=== PATIENT | male | born 1955 | race Two or more races ===

== ENCOUNTER 2017-03-27 09:04 | Day surgery (SDC) | payer OTHER ==
--- NOTE | 2017-03-20 06:40 | Anethesia Preoperative Eval ---
Anesthesia Pre-op PMH/ROS General Date of Evaluation: Mar 20, 2017 Time of Evaluation: 06:39 Anesthesiologist: sirena ASA Score: ASA 3 Mallampati Score Class I : Soft palate, uvula, fauces, pillars visible Class II: Soft palate, uvula, fauces visible Class III: Soft palate, base of uvula visible Class IV: Only hard plate visible Mallampati Classification: Class II Surgeon: benigno Diagnosis: gerd Surgical Procedure: egd Anesthesia History: none Social History: smoking - nonsmoker Family History: no anesthesia problems Allergies: Coded Allergies: CIPROFLOXACIN (Verified Allergy, Severe, 03/27/17) FACIAL SWELLING AND SKIN RASH Medications: see eMAR Past Medical History Gastrointestinal/Genitourinary: Reports: GERD Neurologic/Psychiatric: Reports: depression/anxiety, other - seizure disorder, Anesthesia Pre-op Phys. Exam Physician Exam Constitutional: NAD Neurologic: CN 2-12 intact Cardiovascular: RRR Respiratory: CTA Gastrointestinal: S/NT/ND Airway Exam Mallampati Score: Class II MO: full Neck: supple TMD: 2fb ROM: limited Anesthesia Pre-op A/P Risk Assessment & Plan Assessment: asa3 Plan: mac Status Change Before Surgery: No Pre-Antibiotics Drug: NUBIA Mathews Mar 20, 2017 06:40
[~2017-03-27] VITALS: Ht 167.6 cm; Wt 64.9 kg
[2017-03-27] VITALS (8 sets, daily range): BP systolic 115–141; BP diastolic 77–91
[~2017-03-27 09:04] MED LIST: LR 1000ml 1,000 ML IVLG SCH
[2017-03-27] MEDS ORDERED: LR 1000ml 1,000 ML IVLG SCH (09:47)
[2017-03-27] MEDS ORDERED: LATANOPROST2.5 ML BOTH EYES (09:57)
[2017-03-27] MEDS ORDERED: TIMOPTIC 0.5%1 DRO1 BOTH EYES (09:57)
[2017-03-27] MEDS ORDERED: DILANTIN100 MG ORAL (09:57)
[2017-03-27] MEDS ORDERED: Midazolam 2mg/2ml Inj IVP PRN (10:00)
[2017-03-27] MEDS ORDERED: DiphenhydrAMINE 50mg/ml Inj IVP PRN (10:00)
[2017-03-27] MEDS ORDERED: LR 1000ml ONE (10:00)
[2017-03-27] MEDS ORDERED: Lidocaine 1% MPF 10mg/ml 5ml ONE (10:00)
[2017-03-27] MEDS ORDERED: Atropine Inj 1mg/10ml Syr IV PRN (10:00)
[2017-03-27] MEDS ORDERED: fentaNYL 100 mcg/2 mL IV PRN (10:00)
[2017-03-27] MEDS ORDERED: Propofol 200mg/20ml IV ONE (10:00)
--- NOTE | 2017-03-27 10:00 | Short Stay Surgery H&P ---
History of Present Illness History of Present Illness Chief Complaint Abdominal pains, GERD HPI Jamie Mcgowan is a 62 year old male who was admitted on for GERD/abdominal pains Patient History Allergies: Coded Allergies: CIPROFLOXACIN (Verified Allergy, Severe, 03/27/17) FACIAL SWELLING AND SKIN RASH PAST MEDICAL HISTORY: Past Surgeries: (1) H/O foot surgery Social History: Medication History Scheduled Latanoprost* (Xalatan*), 1 DROP BOTH EYES BEDTIME, (Reported) Phenytoin Sodium Extended* (Dilantin*), 100 MG ORAL THREE TIMES A DAY, (Reported ) Timolol Maleate (Timolol Maleate), 1 DROP BOTH EYES TWICE A DAY, (Reported) Review of Systems Cardiovascular: Reports: no symptoms Respiratory: Reports: no symptoms Skeletal: Reports: no symptoms Gastrointestinal: Reports: gastro esophageal reflux disease Genitourinary: Reports: no symptoms Neurologic: Reports: no symptoms Endocrine: Reports: no symptoms Hematologic: Reports: no symptoms Physical Exam Skin: normal HENT: normal Heart: normal Lungs: normal Abdomen: abnormal Extremities: normal Genitourinary: normal Plan Plan of Care Upper Gi endoscopy and biopsy Preop Interventions None. Summary of Findings See the reports Final Diagnosis: Attestation Are the patient's medical conditions optimized for surgery? Attestation Response: yes EULALIA SOTO Mar 27, 2017 10:00
--- NOTE | 2017-03-27 10:01 | Pre-Procedure Note/Attestation ---
Pre-Procedure Note/Attestation Complete Prior to Procedure Planned Procedure: left Procedure Narrative: Examination of the stomach via endoscopy Indications for Procedure Pre-Operative Diagnosis: R/O peptic ulcer/gastritis/esophagitis Attestation I attest that I discussed the nature of the procedure; its benefits; risks and complications; and alternatives (and the risks and benefits of such alternatives ), prior to the procedure, with the patient (or the patient's legal patient representative). I attest that, if there was a reasonable possibility of needing a blood transfusion, the patient (or the patient's legal patient representative) was given the [facility] standardized written summary, pursuant to the [place] Blood Safety Act ([place] Health and Safety Code # 1645, as amended). I attest that I re-evaluated the patient just prior to the surgery and that there has been no change in the patient's H&P, except as documented below: EULALIA SOTO Mar 27, 2017 10:01
--- NOTE | 2017-03-27 10:22 | Endoscopy Procedure Note ---
Endoscopy Procedure Note Indication for Procedure: Abdominal pains, GERD Procedures Performed: EGD - mild erosion at GE junction constent with GERD biopsied. Gastritis/inflammatory process with edema of prepyloric are and pyloric channel biopsied. Gastric biopsy done from gastric body. Specimen: yes Pt Tolerated Procedure Well: Yes Estimated Blood Loss: none Anesthesiologist: Dr. Sandhu Anesthesia: moderate sedation Medication Given: see anesthesia record Implant(s) used?: No 50 yrs or older w/o bx or poly: Not Applicable 10yrs. F/U not recommended: Not Applicable If not recommended, why?: Med reason:<3 yrs.: System Reason:<3 yrs.: EULALIA SOTO Mar 27, 2017 10:21
--- NOTE | 2017-03-27 10:22 | Discharge Instructions ---
Discharge Instructions Discharge Instructions Follow up with: See docotor in office after two weeks. For Congestive Heart Failure Reminder Report to your physician any weight gain of 5 pounds or more in one week. EULALIA SOTO Mar 27, 2017 10:22
--- NOTE | 2017-03-27 10:44 | Immediate Post-Op Evaluation ---
Immediate Post-Op Evalulation Immediate Post-Op Evalulation Procedure: egd Date of Evaluation: Mar 27, 2017 Time of Evaluation: 10:41 IV Fluids: 200ml lr Blood Products: none Estimated Blood Loss: negligible Blood Pressure Systolic: 121 Blood Pressure Diastolic: 91 Pulse Rate: 68 Respiratory Rate: 18 O2 Sat by Pulse Oximetry: 99 Temperature (Fahrenheit): 97.5 Pain Score (1-10): 0 Nausea: No Vomiting: No Complications none Patient Status: awake, reacts, patent Hydration Status: adequate Drug: NUBIA Mathews Mar 27, 2017 10:44
--- NOTE | 2017-03-27 10:46 | 48 Hour Post Anesthesia Eval ---
Post Anesthesia Evaluation Procedure: egd Date of Evaluation: Mar 27, 2017 Time of Evaluation: 10:46 Blood Pressure Systolic: 126 0: 85 Pulse Rate: 65 Respiratory Rate: 18 Temperature (Fahrenheit): 97.5 O2 Sat by Pulse Oximetry: 99 Airway: patent Nausea: No Vomiting: No Pain Intensity: 0 Hydration Status: adequate Cardiopulmonary Status: stable Mental Status/LOC: patient returned to baseline Post-Anesthesia Complications: none Follow-up care needed: N/A NUBIA ROBLES Mar 27, 2017 10:46
--- NOTE | 2017-03-27 22:30 | Pre-op HX & Phy Repo 2 SIG ---
DATE OF ADMISSION: 03/27/2017 SOURCE: [employer]. HISTORY OF PRESENT ILLNESS: The patient is a 62-year-old gentleman who is being seen prior to undergoing the procedure for upper gastrointestinal endoscopy for which he has been scheduled to receive for evaluation of gastrointestinal symptoms that he has suffered subsequent to his work injury. The patient basically was seen in my office approximately couple months ago when he reported that he was experiencing pain over the epigastric area associated with increasing heartburn episodes. He was already receiving AcipHex medication for the control of this condition however the symptoms of pain was quite high intense of intensity. He also reported that they had the history of nausea and occasional vomiting but no history of hematemesis was mentioned. As I mentioned, he did have symptoms of heartburn for which was being treated at this time. He reported that his problem started after he was prescribed medications of anti-inflammatory agents such as ibuprofen and naproxen etc. which gradually caused his symptoms as well. He denies any difficulty swallowing. He denied any problem with having rectal bleeding or lower gastrointestinal problems. 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 As he was loading a truck with 6000 gallon capacity into trunk he occasionally lifting heavy objects of 50 pounds and during this process he had a lot of pushing, pressing, bending etc. Obviously he got injury over his right ankle and right foot area that he reported that he also received some surgeries particularly as he had a history of fracture the right ankle. Subsequently he was seen by multiple different physicians and received medications for pain and also inflammatory process such as naproxen as I mentioned. PAST MEDICAL HISTORY: Epilepsy otherwise unremarkable. PAST SURGICAL HISTORY: Surgeries as I mentioned, has had history of the right ankle surgery and right foot surgery related to work accident. MEDICATIONS: Currently of AcipHex and Dilantin as the patient has a history of epilepsy as his past medical history. ALLERGIES: Cipro. SOCIAL HISTORY: The applicant denies drinking alcohol or smoking cigarettes. REVIEW OF SYSTEMS: Basically history of present illness. PHYSICAL EXAMINATION: GENERAL: Alert and oriented gentleman, does not seem to be in any acute distress. VITAL SIGNS: Stable. HEENT: Normocephalic. Pupils are equal in size and reactive to light and accommodation. No visible jaundice. Buccal cavity, tongue midline, well hydrated. No ulcers, NECK: Supple. No JVD, thyromegaly, or adenopathy. CHEST: Clear to auscultation and percussion. No rales or rhonchi. HEART: S1 and S2 normal. Regular rhythm. No gallops or murmur. ABDOMEN: Soft, but these areas of tenderness over the upper part of the abdomen particularly over the epigastric area of moderate degree. No palpable mass or hepatosplenomegaly. Bowel sounds are present. EXTREMITIES: Unremarkable. PRELIMINARY IMPRESSION: 1. Epigastric pain. 2. Abdominal pain of uncertain etiology, rule out gastroesophageal acid reflux consistent with esophagitis causing epigastric pain secondary to usage of nonsteroidal anti-inflammatory agents rule out gastritis, peptic ulcer disease, etc. 3. History of epilepsy. 4. History work related bodily injury. RECOMMENDATION: The applicant seems to be stable at this time to undergo the procedure for upper gastrointestinal endoscopy for which he has been scheduled. He understands the risks and benefits and will sign the consent. Said Peewee Tinoco DR: Candace JOB#: [id number] CC: PRICILLA
--- NOTE | 2017-03-27 22:30 | Procedure Note ---
DATE OF PROCEDURE: 03/27/2017 PROCEDURE: Esophagogastroduodenoscopy with biopsy. SURGEON: Pablito Tinoco M.D. This patient was referred by [facility]. PREOPERATIVE DIAGNOSIS: Abdominal pain, epigastric pain, and history of chronic acid reflux. POSTOPERATIVE DIAGNOSES: 1. Gastritis with inflammatory process over the pre-pyloric area and pyloric channel, biopsy. 2. Erosion of the gastroesophageal junction consistent with gastroesophageal reflux, biopsy. Biopsy was also taken from gastric body. MEDICATION USED: Per Dr. Sandhu, anesthesiologist. INSTRUMENT: GIF Olympus upper GI video endoscope. DESCRIPTION OF PROCEDURE: The patient after arriving endoscopy unit, was told about risks and benefits of the procedure, which he accepted and signed informed consent. At this time, he was put on the left lateral decubitus position. After adequate IV sedation, the scope was gently passed through the cricopharyngeal area, was lodged into the upper esophagus, and gradually advanced towards the gastroesophageal junction. The entire length of the esophagus was normal, however, upon reaching to the gastroesophageal junction and Z-line, one could see evidence of localized erosion at the lower part of the esophagus at the junction suggestive of gastroesophageal reflux, but there was no ulcerations or bleeding. One biopsy from this area obtained for microscopic examination. At this time, the scope was advanced into the stomach. Gastric cavity was distended and there was particular finding of edema and inflammatory process in prepyloric area and pyloric channel consistent with gastritis. One biopsy from this area was obtained and subsequently another biopsy from gastric body was obtained as well for microscopic examination. The upper and mid part of the stomach did not show any evidence of major gastritis, however. At this time, the scope was passed through the edematous pyloric channel, introduced into the first and second portion of duodenum, which looked normal. Finally, the scope was pulled out and the procedure was terminated. The patient tolerated the procedure well and left the endoscopy room in a good condition. Pablito Tinoco M.D. DR: ELIZABETH JOB#: [id number] CC:
== END 2017-03-27 11:40 | disposition home or self-care (01) ==
LOC: GAS 09:04
DX: K21.0 Gastro-esophageal reflux disease with esophagitis (principal); K29.70 Gastritis, unspecified, without bleeding; B96.81 Helicobacter pylori [H. pylori] as the cause of diseases classified elsewhere; G40.909 Epilepsy, unspecified, not intractable, without status epilepticus; Z88.8 Allergy status to other drugs, medicaments and biological substances; F32.9 Major depressive disorder, single episode, unspecified; F41.9 Anxiety disorder, unspecified
CPT/HCPCS: 43239; J2704; J7120; 94003; 94150

== ENCOUNTER 2020-01-17 07:59 | Day surgery (SDC) | payer OTHER ==
[2020-01-17] VITALS (7 sets, daily range): BP systolic 120–156; BP diastolic 75–85
[~2020-01-17] VITALS: Ht 167.6 cm; Wt 58.1 kg
[~2020-01-17 07:59] MED LIST changes: +DILANTIN100 MG ORAL; +LATANOPROST2.5 ML BOTH EYES; -LR 1000ml 1,000 ML IVLG SCH; +Lidocaine 1% Plain 30 ml INJ ONE; +METOPROLOL TART25 MG ORAL; +Midazolam 2mg/2ml Inj ONE; +TIMOPTIC 0.5%1 DRO1 BOTH EYES
[2020-01-17] MEDS ORDERED: LR 1000ml 1,000 ML IVLG SCH ×2 (08:00→08:45)
--- NOTE | 2020-01-17 08:32 | Short Stay Surgery H&P ---
History of Present Illness History of Present Illness Chief Complaint Abdominal pains. GERDs HPI Jamie Mcgowan is a 65 year old male who was admitted on for Gerd,/epigastric pains. Patient History Allergies: Coded Allergies: CIPROFLOXACIN (Verified Allergy, Severe, 01/17/20) FACIAL SWELLING AND SKIN RASH LACTOSE (Verified Adverse Reaction, Intermediate, stomach problem, 01/17/20) PAST MEDICAL HISTORY: (1) Hypertension (2) History of ankle surgery Medication History Scheduled Latanoprost* (Xalatan*), 1 DROP BOTH EYES BEDTIME, (Reported) Metoprolol Tartrate* (Metoprolol Tartrate*), 25 MG ORAL DAILY, (Reported) Phenytoin Sodium Extended* (Dilantin*), 300 MG ORAL HS, (Reported) Timolol Maleate (Timolol Maleate), 1 DROP BOTH EYES TWICE A DAY, (Reported) Review of Systems Cardiovascular: Reports: no symptoms, hypertension Respiratory: Reports: no symptoms Skeletal: Reports: trauma Gastrointestinal: Reports: gastro esophageal reflux disease Genitourinary: Reports: no symptoms Neurologic: Reports: no symptoms Endocrine: Reports: no symptoms Hematologic: Reports: no symptoms Physical Exam Vital Signs Last Vital Signs Date Time Temp Pulse Resp B/P (MAP) Pulse Ox O2 Delivery O2 Flow Rate FiO2 01/17/20 08:17 97.5 59 19 156/81 100 Room Air Skin: normal HENT: normal Heart: normal Lungs: normal Abdomen: abnormal Extremities: normal Genitourinary: normal Plan Plan of Care Upper GI. endoscopy with biopsy. Preop Interventions None. Summary of Findings See the reports Attestation Are the patient's medical conditions optimized for surgery? Attestation Response: yes Pablito Tinoco MD Jan 17, 2020 08:32
--- NOTE | 2020-01-17 08:33 | Pre-Procedure Note/Attestation ---
Pre-Procedure Note/Attestation Complete Prior to Procedure Planned Procedure: left Procedure Narrative: Eamination of the upper GI tract via endoscopy with obtaining biopsy. Indications for Procedure Pre-Operative Diagnosis: R/O Gastritis/Peptic ulcer/ esophagitis. Attestation I attest that I discussed the nature of the procedure; its benefits; risks and complications; and alternatives (and the risks and benefits of such alternatives), prior to the procedure, with the patient (or the patient's legal food service representative). I attest that, if there was a reasonable possibility of needing a blood transfusion, the patient (or the patient's legal food service representative) was given the [facility] standardized written summary, pursuant to the [place] Blood Safety Act ([place] Health and Safety Code # 1645, as amended). I attest that I re-evaluated the patient just prior to the surgery and that there has been no change in the patient's H&P, except as documented below: Pablito Tinoco MD Jan 17, 2020 08:33
--- NOTE | 2020-01-17 08:35 | Discharge Instructions ---
Discharge Instructions Discharge Instructions Follow up with: Call to see the docotor after 2 weeks in office. For Congestive Heart Failure Reminder Report to your physician any weight gain of 5 pounds or more in one week. Pablito Tinoco MD Jan 17, 2020 08:34
[2020-01-17] MEDS ORDERED: LORazepam Inj 2mg/ml 1ml IV PRN (08:45)
[2020-01-17] MEDS ORDERED: Ketorolac 30mg Inj IV PRN ×2 (08:45)
[2020-01-17] MEDS ORDERED: Labetalol 5mg/ml 20ml vial IV PRN (08:45)
[2020-01-17] MEDS ORDERED: Atropine Sulfate 0.4mg/ml inj IVP PRN (08:45)
[2020-01-17] MEDS ORDERED: oxyCODONE HCL/Acetaminophen 5/325mg ORAL PRN (08:45)
[2020-01-17] MEDS ORDERED: Midazolam 2mg/2ml Inj IVP PRN (08:45)
[2020-01-17] MEDS ORDERED: HYDROcodone/Acetamin 5/325 tab ORAL PRN (08:45)
[2020-01-17] MEDS ORDERED: HYDROcodone/Acetamin 7.5/325 tab ORAL PRN (08:45)
[2020-01-17] MEDS ORDERED: Hydromorphone 0.5mg/0.5ml inj IVP PRN (08:45)
[2020-01-17] MEDS ORDERED: Metoclopramide 10mg/2ml Inj IVP PRN (08:45)
[2020-01-17] MEDS ORDERED: fentaNYL 100 mcg/2 mL IV PRN (08:45)
[2020-01-17] MEDS ORDERED: DiphenhydrAMINE 50mg/ml Inj IVP PRN (08:45)
[2020-01-17] MEDS ORDERED: Meperidine 25mg/1ml Inj (FOR RIGORS ONLY) IV PRN (08:45)
--- NOTE | 2020-01-17 08:56 | Anethesia Preoperative Eval ---
Anesthesia Pre-op PMH/ROS General Date of Evaluation: Jan 17, 2020 Time of Evaluation: 08:44 Anesthesiologist: Cassie ASA Score: ASA 3 Mallampati Score Class I : Soft palate, uvula, fauces, pillars visible Class II: Soft palate, uvula, fauces visible Class III: Soft palate, base of uvula visible Class IV: Only hard plate visible Mallampati Classification: Class II Surgeon: Earnest Diagnosis: GERD Surgical Procedure: EGD Anesthesia History: none Family History: no anesthesia problems Allergies: Coded Allergies: CIPROFLOXACIN (Verified Allergy, Severe, 01/17/20) FACIAL SWELLING AND SKIN RASH LACTOSE (Verified Adverse Reaction, Intermediate, stomach problem, 01/17/20) Medications: see eMAR Patient NPO?: Yes Past Medical History Cardiovascular: Reports: HTN Gastrointestinal/Genitourinary: Reports: GERD Neurologic/Psychiatric: Reports: depression/anxiety, other - Epilepsy HEENT: Reports: cataract (L), cataract (R), glaucoma Anesthesia Pre-op Phys. Exam Physician Exam Last Vital Signs Date Time Temp Pulse Resp B/P (MAP) Pulse Ox O2 Delivery O2 Flow Rate FiO2 01/17/20 08:17 97.5 59 19 156/81 100 Room Air Constitutional: NAD Neurologic: CN 2-12 intact Cardiovascular: RRR Respiratory: CTA Gastrointestinal: S/NT/ND Airway Exam Mallampati Score: Class II MO: full ROM: limited Teeth: missing, intact Anesthesia Pre-op A/P Risk Assessment & Plan Assessment: ASA 3 Plan: GA Status Change Before Surgery: No Torey Matthews MD Jan 17, 2020 08:56
--- NOTE | 2020-01-17 08:57 | Immediate Post-Op Evaluation ---
Immediate Post-Op Evalulation Immediate Post-Op Evalulation Procedure: EGD Date of Evaluation: Jan 17, 2020 Time of Evaluation: 09:25 IV Fluids: 300 LR Blood Products: 0 Estimated Blood Loss: 1 Urinary Output: 0 Blood Pressure Systolic: 138 Blood Pressure Diastolic: 85 Pulse Rate: 71 Respiratory Rate: 16 O2 Sat by Pulse Oximetry: 100 Temperature (Fahrenheit): 97.3 Pain Score (1-10): 2 Nausea: No Vomiting: No Complications 0 Patient Status: awake, reacts, patent, none Hydration Status: adequate Torey Matthews MD Jan 17, 2020 08:57
--- NOTE | 2020-01-17 08:58 | Endoscopy Procedure Note ---
Endoscopy Procedure Note General Indication for Procedure: Abdominal pains/ history of esophagitis Procedures Performed: EGD - Evidence of pyloric kusum edema at 11 O'clock area and mild antritis, biopsied; otherwise completely normal Upper GI. endoscopy as there was no evidence of esophagitis. Specimen: yes Pt Tolerated Procedure Well: Yes Estimated Blood Loss: none Anesthesia Anesthesiologist: Dr. Matthews Anesthesia: moderate sedation Medications Medication Given: see anesthesia record Inserted Devices Implant(s) used?: No Quality Quality of Bowel Preparation: Excellent Was there any complications?: No GI Core Measures 50 yrs or older w/o bx or poly: Not Applicable 10yrs. F/U recommended: Not Applicable If not recommended, why?: Med reason:<3 yrs.: System Reason:<3 yrs.: Pablito Tinoco MD Jan 17, 2020 08:58
--- NOTE | 2020-01-17 08:58 | 48 Hour Post Anesthesia Eval ---
Post Anesthesia Evaluation Procedure: EGD Date of Evaluation: Jan 17, 2020 Time of Evaluation: 11:34 Blood Pressure Systolic: 128 0: 86 Pulse Rate: 71 Respiratory Rate: 18 Temperature (Fahrenheit): 98 O2 Sat by Pulse Oximetry: 100 Airway: patent Nausea: No Vomiting: No Pain Intensity: 2 Hydration Status: adequate Cardiopulmonary Status: Stable Mental Status/LOC: patient returned to baseline Follow-up Care/Observations: 0 Post-Anesthesia Complications: 0 Follow-up care needed: ready to discharge Torey Matthews MD Jan 17, 2020 08:58
[2020-01-17] MEDS ORDERED: Lidocaine 1% MPF 10mg/ml 5ml ONE (09:00)
[2020-01-17] MEDS ORDERED: LR 1000ml ONE (09:00)
--- NOTE | 2020-01-17 10:00 | Operative Note - Dictated ---
DATE OF OPERATION: 01/17/2020 SURGEON: Pablito Tinoco MD. PROCEDURE: Esophagogastroduodenoscopy with biopsy. PREOPERATIVE DIAGNOSIS: History of esophagitis, recurrent abdominal pain and gastroesophageal reflux, rule out gastritis, esophagitis, peptic ulcer disease. POSTOPERATIVE DIAGNOSIS: Mild antritis with mild edema of the pyloric channel at 11 o'clock, otherwise completely normal upper GI endoscopy. Biopsy was taken from the gastric body and pyloric channel. MEDICATION USED: Per Dr. Matthews. INSTRUMENT: GIF Olympus upper GI video endoscope. DESCRIPTION OF PROCEDURE: The patient after arriving an endoscopy unit, was told about risks and benefits of the procedure, which he accepted and signed informed consent. At this time, he was put on the left lateral decubitus position. After adequate IV sedation, the scope was gently passed through the cricopharyngeal area, was lodged into the upper esophagus and was gradually advanced towards gastroesophageal junction. The entire length of esophagus looked normal and there was no any evidence of esophagitis or inflammatory process, strictures, polyps, tumors, etc. At this time, the scope was passed through the GE junction, which looked normal and there was no any evidence of Quezada's. There was no hiatal hernia. Finally, the scope was advanced into the stomach, gastric cavity was distended with insufflation of air. Gradually, the areas of the fundus and the body and the antrum were examined and basically two parts of the upper abdomen completely looked normal except there was some edema over the preantral area consistent with mild antritis. There was also notable edema of the pyloric channel at 11 o'clock, but no ulceration. At this time, one biopsy from the pyloric channel and the other one from the gastric body was obtained and subsequently the scope was passed through the pylorus. First and second portion of duodenum were found to be completely normal. At this time, the scope was pulled out and retroflexion maneuver was applied and the area of the gastroesophageal junction was examined in a closer fashion, which revealed completely normal findings. Finally, the scope was pulled out and the procedure was terminated. The patient tolerated the procedure well and left the endoscopy room in a good condition. Jay RamanD. DR: CANDACE JOB#: [id number] CC:
--- NOTE | 2020-01-17 11:00 | Pre-op HX & Phy Repo 2 SIG ---
DATE OF ADMISSION: 01/17/2020 HISTORY OF PRESENT ILLNESS: The patient is being seen prior to undergoing the procedure of upper GI endoscopy for which he has been scheduled to receive for evaluation of his gastrointestinal conditions. The patient basically is well known to me since I have seen him in the past approximately three years ago when he underwent an upper GI endoscopic examination, which revealed evidence of gastritis due to Helicobacter pylori infection and esophagitis. He was subsequently treated adequately for his Helicobacter pylori infection. At this time, the patient was referred again for evaluation of his gastrointestinal symptoms as basically complaining of experiencing pain all over the abdomen and particularly over the epigastric area with the symptoms of continuation of heartburn. I saw him approximately a couple of months ago in the office as well as today that he mentioned that he is still suffering from, experiencing pain over the upper and lower part of the abdomen. The pains are occurring intermittently. This pains have been mostly increasing for the past year or so. He reports also is abdominal pain, passage of gas. However, he has not been receiving any medications for controlling of his gastroesophageal acid reflux such as PPI's or H2 blockers, etc., for all this time. In the past, he reported that he was taking omeprazole that he has stopped. He also tells me that he feels fluid coming in his throat. 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 At this time, he denies vomiting blood or passing bright red blood per rectum. He does have continuation of the constipation, however. He also reports to me that he has excessive depression symptoms as well. At this point, when I examined the patient in the office recently and at this time also, he denies taking any nonsteroidal anti-inflammatory agents though in the past he was taking ibuprofen subsequent to his work injury for a long period of time. He also does have symptoms of experiencing pain over the anal area during the defecation. He also reports to me that he does have excessive belching symptoms with the symptoms of regurgitation consistent with underlying gastroesophageal acid reflux. As I mentioned, when I examined this patient endoscopically approximately two years ago, there was evidence of erosions in his lower esophagus suggesting the gastroesophageal acid reflux and esophagitis as well. PAST MEDICAL HISTORY: The patient has had history of hypertension and that he is being treated for it currently, but he denies having any arthritis or hyperlipidemia, pancreatitis, diabetes, etc. PAST SURGICAL HISTORY: The patient has undergone surgery for the right ankle subsequent to his work injury. ALLERGIES: Nonsignificant. HABITS: He denies drinking alcohol or smoking cigarettes and does not use illicit drugs. MEDICATIONS: Dilantin and lactulose and metoprolol. The new medications are Xalatan eye drops and metoprolol 25 mg daily and also Dilantin at bedtime and timolol maleate 5 mL drops. REVIEW OF SYSTEMS: The patient basically denies having any major headaches or chest pain or shortness of breath at this time. Musculoskeletal clifford, he has been experiencing pain over his right leg and right ankle subsequent to his injury that he is still continues to complain of. Psychologically, also he seems to be quite depressed as well. PHYSICAL EXAMINATION: GENERAL: At this time reveals alert, well-oriented gentleman, does not seem to be in any acute distress and he looks well developed and well nourished. VITAL SIGNS: Blood pressure 156/81, temperature 97.5, pulse rate 69 per minute, respirations 19 per minute, oxygen saturation in room is 100%. HEENT: Normocephalic. Pupils equal in size and reactive to light and accommodation. No visible jaundice. Buccal cavity, tongue midline, well hydrated. No ulcers. NECK: Supple. No JVD, thyromegaly, or adenopathy. CHEST: Clear to auscultation and percussion. No rales or rhonchi. HEART: S1, S2 normal. Regular rhythm. No gallops or murmur. ABDOMEN: Soft, but there are areas of tenderness all over the abdomen particularly over the epigastric area. There is no organomegaly. No palpable mass. No rebound. Bowel sounds are present. RECTAL: Deferred. PSYCHOLOGIC: The patient looks quite depressed. SKIN: Nonsignificant. LYMPHATICS: Nonsignificant. PRELIMINARY PREOPERATIVE IMPRESSION: 1. Generalized abdominal pain of uncertain etiology with a history of gastroesophageal acid reflux and esophagitis, rule out recurrent esophagitis, gastritis. 2. Possible underlying irritable bowel syndrome, IBS with generalized abdominal pain. 3. History of Helicobacter pylori infection, being treated, question of the status at this point. 4. History of bodily injury, fracture of the right ankle. 5. Severe depression. 6. Hypertension. RECOMMENDATIONS: The applicant at this time seems to be quite stable to undergo the procedure of upper GI endoscopy for which he has been scheduled. He understands the risks and benefits and will sign the consent. Said Peewee Tinoco DR: CANDACE JOB#: [id number] CC:
== END 2020-01-17 10:54 | disposition home or self-care (01) ==
LOC: GAS 07:59
DX: K29.60 Other gastritis without bleeding (principal); I10 Essential (primary) hypertension; K21.9 Gastro-esophageal reflux disease without esophagitis; Z79.899 Other long term (current) drug therapy; F32.9 Major depressive disorder, single episode, unspecified; G40.909 Epilepsy, unspecified, not intractable, without status epilepticus; F41.9 Anxiety disorder, unspecified; Z88.8 Allergy status to other drugs, medicaments and biological substances
CPT/HCPCS: 43239; 94003; J2001; J2250; J2704; J7120; U0002; 94150